=== PATIENT | male | born 1940 | race Hispanic/Latino ===

== ENCOUNTER → 2020-10-22 | Outpatient (CLI) | payer OTHER | END | disposition home or self-care (01) | LOC: OIH 10:18 | PROVIDERS: ATTEND Internal Medicine Cardiovascular Disease | DX: Z13.6 Encounter for screening for cardiovascular disorders (principal) | CPT/HCPCS: 75571 ==

== ENCOUNTER 2022-09-09 17:17 | Emergency (ER) | payer OTHER ==
[~2022-09-09] VITALS: Ht 175.3 cm; Wt 89.8 kg
[2022-09-09 19:24] LABS: BASOPHILS % (AUTO) 0.4 % (0.0-5.0); EOSINOPHILS % (AUTO) 3.9 % (0.0-8.0); HEMATOCRIT 39.3 % (42-54); LYMPHOCYTES % (AUTO) 22.1 % (21.0-51.0); MEAN CORPUSCULAR HEMOGLOBIN 29.9 pg (27.0-33.0); MEAN CORPUSCULAR HGB CONC 32.8 g/dL (32.0-36.0); MEAN CORPUSCULAR VOLUME 91.2 fL (79-99); MONOCYTES % (AUTO) 6.7 % (3.0-13.0); NEUTROPHILS % (AUTO) 66.5 % (40.0-77.0); PLATELET COUNT (AUTO) 185 K/uL (130-400); RED BLOOD CELL COUNT(AUTO) 4.31 MIL/uL (4.50-6.20); RED CELL DISTRIBUTION WIDTH 13.2 % (11.0-15.5); WHITE BLOOD COUNT (AUTO) 7.5 K/uL (4.8-10.8)
[2022-09-09 19:46] LABS: ALBUMIN 3.4 g/dL (3.5-5.0); TOTAL PROTEIN, SERUM 7.2 g/dL (6.0-8.3)
[2022-09-09] MEDS ORDERED: 0.9%NACL 1000ML 1,000 ML IV ONE (20:30)
[2022-09-09 20:36] LABS: ABG BASE EXCESS 0.2 mmol/L (-2.0-3.0); ABG HCO3 24.6 mmol/L (21.0-28.0); ABG OXYGEN SATURATION 94.7 % (95.0-99.0); ABG PCO2 39 mmHg (35-48)
[2022-09-09] MEDS ORDERED: INSULIN HUMULIN R 100 UNIT/ML 3ML IV ONE (21:00)
[2022-09-09 21:15] LABS: APPEARANCE,URINE CLEAR (CLEAR); BILIRUBIN,URINE NEGATIVE (NEGATIVE); COLOR,URINE LIGHT-YELLOW (YELLOW); GLUCOSE, URINE (UA) >=1000 mg/dL (NEGATIVE); KETONES,URINE NEGATIVE (NEGATIVE); LEUKOCYTE ESTERASE ,URINE NEGATIVE Leu/uL (NEGATIVE); NITRATE,URINE NEGATIVE (NEGATIVE); OCCULT BLOOD,URINE NEGATIVE (NEGATIVE); PH,URINE 5.5 (5.0-8.0); PROTEIN,URINE NEGATIVE (NEGATIVE); UROBILINOGEN,URINE 0.2 mg/dL (0.2-1.0)
[2022-09-09 21:18] LABS: WBC,URINE 0-1 /HPF (0-1); YEAST,URINE BUDDING FEW /HPF (None Seen)
[2022-09-10] MEDS ORDERED: 0.9%NACL 1000ML 1,000 ML IV ONE
[2022-09-10] MEDS ORDERED: CLIN-141 PO (01:49)
[2022-09-10 01:57] VITALS: BP 126/53
== END 2022-09-10 02:03 | disposition home or self-care (01) ==
LOC: EDH 17:17
DX: E11.65 Type 2 diabetes mellitus with hyperglycemia (principal); R60.9 Edema, unspecified; Z88.0 Allergy status to penicillin; Z98.890 Other specified postprocedural states
CPT/HCPCS: 99285; 96361; 96374; 70486; 80053; 82803; 85025; 82948 ×2; 82010; 81001; 36415 ×2; 93005; 36600; 83605 ×3; J1815; J7030 ×2

== ENCOUNTER 2023-10-30 22:50 | Emergency (ER) | payer OTHER ==
[~2023-10-30] VITALS: Ht 175.3 cm; Wt 89.8 kg
[~2023-10-30 22:50] MED LIST: ATOR-2 PO; CARB200T6 PO; DONE10TA43 PO; FAMO40TA7 PO; GABA300C PO; GLIM2TAB30 PO; LEVO-70 PO; OXYB5TAB20 PO
[2023-10-30 23:13] LABS: BASOPHILS # (AUTO) 0.02 K/uL (0.00-0.20); BASOPHILS % (AUTO) 0.2 % (0.0-5.0); EOSINOPHILS # (AUTO) 0.12 K/uL (0.00-0.70); EOSINOPHILS % (AUTO) 1.2 % (0.0-8.0); HEMATOCRIT 41.1 % (42-54); IMMATURE GRANULOCYTE ABSOLUTE 0.04 K/uL (0-1); LYMPHOCYTES # (AUTO) 1.4 K/uL (1.0-4.8); LYMPHOCYTES % (AUTO) 14.6 % (21.0-51.0); MEAN CORPUSCULAR HGB CONC 34.8 g/dL (32.0-36.0); MONOCYTES # (AUTO) 0.7 K/uL (0.1-1.0); MONOCYTES % (AUTO) 6.8 % (3.0-13.0); NEUTROPHILS # (AUTO) 7.6 K/uL (1.8-7.7); NEUTROPHILS % (AUTO) 76.8 % (40.0-77.0); PLATELET COUNT (AUTO) 222 K/uL (130-400); RED BLOOD CELL COUNT(AUTO) 4.62 MIL/uL (4.50-6.20); WHITE BLOOD COUNT (AUTO) 9.9 K/uL (4.8-10.8)
[2023-10-30 23:24] LABS: CREATININE 0.9 mg/dL (0.5-1.3); POTASSIUM 3.6 mmol/L (3.5-5.1)
[2023-10-30 23:27] LABS: SARS-CoV-2, RNA, NAAT NEGATIVE SARS CoV-2 (NEGATIVE)
[2023-10-30 23:27] LABS: INR <= 0.93 (0.85-1.15)
[2023-10-30 23:28] LABS: PARTIAL THROMBOPLASTIN TIME 26.7 SEC (26.3-35.5)
[2023-10-30 23:29] LABS: INFLUENZA TYPE A NEGATIVE FOR TYPE A (NEG); INFLUENZA TYPE B NEGATIVE FOR TYPE B (NEG)
[2023-10-30] MEDS: 0.9%NACL 1000ML 1,000 ML IV ONE (23:29)
[2023-10-30 23:32] LABS: ALBUMIN 3.1 g/dL (3.5-5.0); BILIRUBIN,TOTAL 0.3 mg/dL (0.2-1.0)
[2023-10-31 02:02] LABS: APPEARANCE,URINE CLEAR (CLEAR); BILIRUBIN,URINE NEGATIVE (NEGATIVE); COLOR,URINE YELLOW (YELLOW); GLUCOSE, URINE (UA) NEGATIVE (NEGATIVE); KETONES,URINE NEGATIVE (NEGATIVE); LEUKOCYTE ESTERASE ,URINE NEGATIVE Leu/uL (NEGATIVE); NITRATE,URINE NEGATIVE (NEGATIVE); OCCULT BLOOD,URINE NEGATIVE (NEGATIVE); PROTEIN,URINE 30 mg/dL (NEGATIVE)
[2023-10-31 02:09] LABS: ADD UA MICROSCOPIC YES
[2023-10-31 02:10] LABS: MUCUS,URINE RARE LPF (None Seen); RBC,URINE 0-1 /HPF (0-1); SQUAMOUS EPITHELIAL CELL,UR RARE /HPF (0-2)
[2023-10-31 09:02] VITALS: BP 132/78; PULSE 70; RESP 16; O2SAT 99
== END 2023-10-31 06:50 | disposition home or self-care (01) ==
LOC: EDH 22:50
DX: G93.32 Myalgic encephalomyelitis/chronic fatigue syndrome (principal); I10 Essential (primary) hypertension; E11.9 Type 2 diabetes mellitus without complications; E78.00 Pure hypercholesterolemia, unspecified; D69.6 Thrombocytopenia, unspecified; Z20.822 Contact with and (suspected) exposure to COVID-19; Z79.84 Long term (current) use of oral hypoglycemic drugs; Z79.899 Other long term (current) drug therapy; Z98.890 Other specified postprocedural states; Z88.0 Allergy status to penicillin
CPT/HCPCS: 99285; 96360; 71045; 87635; 96361; 84484; 80053; 85025; 85610; 85730; 87804 ×2; 83605 ×2; 81001; 36415 ×2; 93005; 70450; J7030

== ENCOUNTER 2023-12-07 21:59 | Observation (INO) | payer OTHER ==
[~2023-12-07] VITALS: Ht 170.2 cm; Wt 89.3 kg
[2023-12-07 23:06] LABS: APPEARANCE,URINE CLEAR (CLEAR); BILIRUBIN,URINE NEGATIVE (NEGATIVE); COLOR,URINE LIGHT-YELLOW (YELLOW); GLUCOSE, URINE (UA) NEGATIVE (NEGATIVE); KETONES,URINE NEGATIVE (NEGATIVE); LEUKOCYTE ESTERASE ,URINE NEGATIVE Leu/uL (NEGATIVE); NITRATE,URINE NEGATIVE (NEGATIVE); OCCULT BLOOD,URINE NEGATIVE (NEGATIVE); PROTEIN,URINE NEGATIVE (NEGATIVE); UROBILINOGEN,URINE 0.2 mg/dL (0.2-1.0)
[2023-12-07 23:08] LABS: ADD UA MICROSCOPIC NO
[2023-12-07 23:11] LABS: BASOPHILS # (AUTO) 0.02 K/uL (0.00-0.20); BASOPHILS % (AUTO) 0.3 % (0.0-5.0); EOSINOPHILS # (AUTO) 0.27 K/uL (0.00-0.70); EOSINOPHILS % (AUTO) 4.4 % (0.0-8.0); HEMATOCRIT 40.1 % (42-54); IMMATURE GRANULOCYTE ABSOLUTE 0.02 K/uL (0-1); LYMPHOCYTES # (AUTO) 1.7 K/uL (1.0-4.8); LYMPHOCYTES % (AUTO) 27.5 % (21.0-51.0); MEAN CORPUSCULAR HEMOGLOBIN 30.8 pg (27.0-33.0); MEAN CORPUSCULAR HGB CONC 34.4 g/dL (32.0-36.0); MEAN CORPUSCULAR VOLUME 89.5 fL (79-99); MONOCYTES # (AUTO) 0.4 K/uL (0.1-1.0); NEUTROPHILS # (AUTO) 3.7 K/uL (1.8-7.7); NEUTROPHILS % (AUTO) 60.5 % (40.0-77.0); PLATELET COUNT (AUTO) 160 K/uL (130-400); RED BLOOD CELL COUNT(AUTO) 4.48 MIL/uL (4.50-6.20); RED CELL DISTRIBUTION WIDTH 13.8 % (11.0-15.5); WHITE BLOOD COUNT (AUTO) 6.1 K/uL (4.8-10.8)
[2023-12-07 23:26] LABS: CREATININE 0.8 mg/dL (0.5-1.3); POTASSIUM 3.7 mmol/L (3.5-5.1)
[2023-12-07 23:31] LABS: ALBUMIN 3.1 g/dL (3.5-5.0); BILIRUBIN,TOTAL 0.3 mg/dL (0.2-1.0); TOTAL PROTEIN, SERUM 6.7 g/dL (6.0-8.3)
[2023-12-08] MEDS: 0.9%NACL 1000ML 1,000 ML IV ONE (00:14)
[2023-12-08] MEDS ORDERED: CEFAZOLIN SODIUM 2 GM VIAL IVPB SCH (01:30)
[2023-12-08] MEDS ORDERED: KCL 20 MEQ ERTAB PO PRN (03:00)
[2023-12-08] MEDS ORDERED: POTASSIUM CHLORIDE 20MEQ/100ML 100 ML IV PRN (03:00)
[2023-12-08] MEDS ORDERED: DEXTROSE 50%-WATER 50 ML DISP.SYRIN IV PRN (03:00)
[2023-12-08] MEDS ORDERED: ONDANSETRON 4MG INJ IV PRN (03:00)
[2023-12-08] MEDS ORDERED: MAGNESIUM 2GM PREMIX 50ML 50 ML IV PRN (03:00)
[2023-12-08] MEDS ORDERED: POTASSIUM CHLORIDE 10% ELIXIR 20 MEQ/15 ML UDCUP PO PRN (03:00)
[2023-12-08] MEDS ORDERED: HYDRALAZINE 20MG/ML VIAL IV PRN (03:00)
[2023-12-08] MEDS ORDERED: GLUCAGON 1MG KIT 1 MG ML IM PRN (03:00)
[2023-12-08] MEDS: 0.9%NACL 1000ML 1,000 ML IV SCH (03:54)
[2023-12-08] MEDS: CEFAZOLIN SODIUM IVPB SCH (03:54)
[2023-12-08] MEDS: [UNRECOGNIZED DRUG - OTHER] IVPB SCH (03:54)
[2023-12-08] MEDS: CEFAZOLIN SODIUM 1 GM VIAL ONE (03:56)
[2023-12-08 07:25] LABS: BASOPHILS # (AUTO) 0.02 K/uL (0.00-0.20); BASOPHILS % (AUTO) 0.3 % (0.0-5.0); EOSINOPHILS # (AUTO) 0.33 K/uL (0.00-0.70); EOSINOPHILS % (AUTO) 5.4 % (0.0-8.0); HEMATOCRIT 39.6 % (42-54); IMMATURE GRANULOCYTE ABSOLUTE 0.02 K/uL (0-1); LYMPHOCYTES # (AUTO) 1.8 K/uL (1.0-4.8); LYMPHOCYTES % (AUTO) 29.6 % (21.0-51.0); MEAN CORPUSCULAR HEMOGLOBIN 30.2 pg (27.0-33.0); MEAN CORPUSCULAR HGB CONC 34.6 g/dL (32.0-36.0); MEAN CORPUSCULAR VOLUME 87.2 fL (79-99); MONOCYTES # (AUTO) 0.5 K/uL (0.1-1.0); NEUTROPHILS # (AUTO) 3.5 K/uL (1.8-7.7); NEUTROPHILS % (AUTO) 56.4 % (40.0-77.0); PLATELET COUNT (AUTO) 160 K/uL (130-400); RED BLOOD CELL COUNT(AUTO) 4.54 MIL/uL (4.50-6.20); RED CELL DISTRIBUTION WIDTH 13.7 % (11.0-15.5); WHITE BLOOD COUNT (AUTO) 6.1 K/uL (4.8-10.8)
[2023-12-08] MEDS: INSULIN HUMULIN R 100 UNIT/ML 3ML SQ SCH (07:30)
[2023-12-08 07:34] LABS: HEMOGLOBIN A1C 6.8 % (4.0-6.0)
[2023-12-08 07:36] LABS: AMPHET/METH SCREEN,URINE NEGATIVE (NEGATIVE); BARBITURATE SCREEN, URINE NEGATIVE (NEGATIVE); BENZODIAZEPINES SCREEN,URINE NEGATIVE (NEGATIVE); CANNABINOID SCREEN,URINE NEGATIVE (NEGATIVE); COCAINE SCREEN,URINE NEGATIVE (NEGATIVE); OPIATE SCREEN,URINE NEGATIVE (NEGATIVE); PHENCYCLIDINE SCREEN,URINE NEGATIVE (NEGATIVE)
[2023-12-08 07:53] LABS: ALBUMIN 3.1 g/dL (3.5-5.0); BILIRUBIN,TOTAL 0.3 mg/dL (0.2-1.0); CREATININE 0.7 mg/dL (0.5-1.3); MAGNESIUM 1.9 mg/dL (1.80-2.40); POTASSIUM 3.6 mmol/L (3.5-5.1); THYROID STIMULATING HORMONE 1.05 uIU/mL (0.36-3.74); TOTAL PROTEIN, SERUM 6.7 g/dL (6.0-8.3)
[2023-12-08] MEDS: FAMOTIDINE 20MG VIAL IV SCH (08:56)
[2023-12-08] MEDS: HEPARIN 5,000 UNIT VIAL SQ SCH (08:56)
[2023-12-08] MEDS: HALOPERIDOL INJ 5 MG/ML VIAL ONE (16:23)
[2023-12-08] MEDS: HALOPERIDOL INJ 5 MG/ML VIAL IM SCH (16:26)
[2023-12-08 16:30] VITALS: O2SAT 98
[2023-12-08 17:33] VITALS: BP 125/77; PULSE 81; RESP 18
[2023-12-08 19:25] VITALS: BP 120/62; PULSE 73; RESP 20
[2023-12-08 20:00] VITALS: O2SAT 95
[2023-12-08] MEDS ORDERED: OXYB-66 PO (20:15)
[2023-12-08] MEDS ORDERED: ERGO500093 PO (20:15)
[2023-12-08 22:55] VITALS: BP 118/60; PULSE 70; RESP 18
[2023-12-09] VITALS (8 sets, daily range): BP systolic 108–157; BP diastolic 50–108; PULSE 50–80; RESP 18–22; O2SAT 98–100
[2023-12-09 04:00] LABS: BASOPHILS # (AUTO) 0.03 K/uL (0.00-0.20); BASOPHILS % (AUTO) 0.5 % (0.0-5.0); EOSINOPHILS # (AUTO) 0.31 K/uL (0.00-0.70); EOSINOPHILS % (AUTO) 5.3 % (0.0-8.0); HEMATOCRIT 39.6 % (42-54); IMMATURE GRANULOCYTE ABSOLUTE 0.01 K/uL (0-1); LYMPHOCYTES # (AUTO) 1.9 K/uL (1.0-4.8); LYMPHOCYTES % (AUTO) 31.8 % (21.0-51.0); MEAN CORPUSCULAR HEMOGLOBIN 30.7 pg (27.0-33.0); MEAN CORPUSCULAR HGB CONC 34.3 g/dL (32.0-36.0); MEAN CORPUSCULAR VOLUME 89.4 fL (79-99); MONOCYTES # (AUTO) 0.4 K/uL (0.1-1.0); MONOCYTES % (AUTO) 7.4 % (3.0-13.0); NEUTROPHILS # (AUTO) 3.2 K/uL (1.8-7.7); NEUTROPHILS % (AUTO) 54.8 % (40.0-77.0); PLATELET COUNT (AUTO) 173 K/uL (130-400); RED BLOOD CELL COUNT(AUTO) 4.43 MIL/uL (4.50-6.20); RED CELL DISTRIBUTION WIDTH 13.9 % (11.0-15.5); WHITE BLOOD COUNT (AUTO) 5.8 K/uL (4.8-10.8)
[2023-12-09 04:18] LABS: BILIRUBIN,TOTAL 0.4 mg/dL (0.2-1.0); CREATININE 0.7 mg/dL (0.5-1.3); POTASSIUM 3.6 mmol/L (3.5-5.1); TOTAL PROTEIN, SERUM 6.5 g/dL (6.0-8.3)
[2023-12-09] MEDS: CEFAZOLIN SODIUM 1 GM VIAL IVPB SCH (04:56)
[2023-12-09] MEDS: HALOPERIDOL INJ 5 MG/ML VIAL IV PRN (19:55)
[2023-12-09] MEDS: GABAPENTIN 300 MG CAPSULE PO SCH (19:55)
[2023-12-10 03:11] VITALS: BP 129/72; PULSE 76; RESP 16
[2023-12-10 04:55] LABS: BASOPHILS # (AUTO) 0.03 K/uL (0.00-0.20); BASOPHILS % (AUTO) 0.5 % (0.0-5.0); EOSINOPHILS # (AUTO) 0.24 K/uL (0.00-0.70); EOSINOPHILS % (AUTO) 4.3 % (0.0-8.0); HEMATOCRIT 39.9 % (42-54); IMMATURE GRANULOCYTE ABSOLUTE 0.01 K/uL (0-1); LYMPHOCYTES % (AUTO) 35.5 % (21.0-51.0); MEAN CORPUSCULAR HEMOGLOBIN 30.5 pg (27.0-33.0); MEAN CORPUSCULAR HGB CONC 34.3 g/dL (32.0-36.0); MEAN CORPUSCULAR VOLUME 88.9 fL (79-99); MONOCYTES # (AUTO) 0.5 K/uL (0.1-1.0); MONOCYTES % (AUTO) 8.9 % (3.0-13.0); NEUTROPHILS # (AUTO) 2.8 K/uL (1.8-7.7); NEUTROPHILS % (AUTO) 50.6 % (40.0-77.0); PLATELET COUNT (AUTO) 182 K/uL (130-400); RED BLOOD CELL COUNT(AUTO) 4.49 MIL/uL (4.50-6.20); WHITE BLOOD COUNT (AUTO) 5.5 K/uL (4.8-10.8)
[2023-12-10 05:23] LABS: ALBUMIN 3.1 g/dL (3.5-5.0); BILIRUBIN,TOTAL 0.6 mg/dL (0.2-1.0); CREATININE 0.8 mg/dL (0.5-1.3); POTASSIUM 3.2 mmol/L (3.5-5.1); TOTAL PROTEIN, SERUM 6.7 g/dL (6.0-8.3)
[2023-12-10] MEDS: POTASSIUM CHLORIDE 20MEQ/100ML 100 ML IV PRN (06:21)
[2023-12-10 07:30] VITALS: BP 145/76; PULSE 52; RESP 19
[2023-12-10 08:00] VITALS: O2SAT 93
== END 2023-12-10 10:25 | disposition left against medical advice (07) ==
LOC: EDH 21:59 → EDHIP 12-08 02:31 → 4DH 12-08 15:14
PROVIDERS: ADMIT Hospitalist; ATTEND Hospitalist
DX: R41.82 Altered mental status, unspecified (principal); F03.90 Unspecified dementia, unspecified severity, without behavioral disturbance, psychotic disturbance, mood disturbance, and anxiety; I10 Essential (primary) hypertension; E11.65 Type 2 diabetes mellitus with hyperglycemia; E78.5 Hyperlipidemia, unspecified; E11.40 Type 2 diabetes mellitus with diabetic neuropathy, unspecified; L03.115 Cellulitis of right lower limb; D64.9 Anemia, unspecified; E46 Unspecified protein-calorie malnutrition; R60.0 Localized edema; E78.00 Pure hypercholesterolemia, unspecified; I87.8 Other specified disorders of veins; Z74.01 Bed confinement status; Z88.0 Allergy status to penicillin; Z53.29 Procedure and treatment not carried out because of patient's decision for other reasons; Z79.899 Other long term (current) drug therapy
CPT/HCPCS: 80053 ×4; 82140 ×2; 85025 ×4; 83605; 81003; 36415 ×4; 70450; 93005; 96376 ×3; 96372 ×3; 96361 ×3; 96375 ×2; 83036; 80156; 84443; 83735 ×2; 80061; 80305; 87040 ×2; 82948 ×5; 71045; 93971; 99291; 92610; 84145; 96365; 96366 ×2; 74230; 92611; G0378 ×54; J3490 ×5; J0690 ×3; J7030 ×2; J1630 ×3; J1644 ×4; J3480; 96374

== ENCOUNTER 2024-01-30 00:09 | Emergency (ER) | payer OTHER ==
[~2024-01-30] VITALS: Ht 175.3 cm; Wt 77.1 kg
[~2024-01-30 00:09] MED LIST changes: +ERGO500093 PO; +OXYB-66 PO
[2024-01-30 00:44] LABS: BASOPHILS # (AUTO) 0.03 K/uL (0.00-0.20); BASOPHILS % (AUTO) 0.3 % (0.0-5.0); EOSINOPHILS # (AUTO) 0.31 K/uL (0.00-0.70); EOSINOPHILS % (AUTO) 2.8 % (0.0-8.0); HEMATOCRIT 40.8 % (42-54); IMMATURE GRANULOCYTE ABSOLUTE 0.06 K/uL (0-1); MEAN CORPUSCULAR HGB CONC 35.3 g/dL (32.0-36.0); MEAN CORPUSCULAR VOLUME 87.7 fL (79-99); MONOCYTES # (AUTO) 0.6 K/uL (0.1-1.0); MONOCYTES % (AUTO) 5.2 % (3.0-13.0); NEUTROPHILS # (AUTO) 8.2 K/uL (1.8-7.7); NEUTROPHILS % (AUTO) 73.2 % (40.0-77.0); PLATELET COUNT (AUTO) 163 K/uL (130-400); RED BLOOD CELL COUNT(AUTO) 4.65 MIL/uL (4.50-6.20); RED CELL DISTRIBUTION WIDTH 13.2 % (11.0-15.5); WHITE BLOOD COUNT (AUTO) 11.2 K/uL (4.8-10.8)
[2024-01-30 00:53] LABS: POTASSIUM 3.4 mmol/L (3.5-5.1)
[2024-01-30 00:58] LABS: ALBUMIN 3.5 g/dL (3.5-5.0); BILIRUBIN,TOTAL 0.4 mg/dL (0.2-1.0); TOTAL PROTEIN, SERUM 7.4 g/dL (6.0-8.3)
[2024-01-30] MEDS: LEVETIRACETAM 500 MG/5 ML SD VIAL IV SCH (01:13)
[2024-01-30] MEDS: NICARDIPINE 25MG INJ 25 MG in 0.9% NACL 250ML 240 ML IV SCH (01:14)
[2024-01-30] MEDS: NICARDIPINE 25MG INJ IV ONE (01:15)
[2024-01-30 02:19] VITALS: BP 124/68; PULSE 88; RESP 19; O2SAT 97
== END 2024-01-30 02:49 | disposition short-term general hospital (02) ==
LOC: EDH 00:09
DX: S06.6X9A Traumatic subarachnoid hemorrhage with loss of consciousness of unspecified duration, initial encounter (principal); S06.5X9A Traumatic subdural hemorrhage with loss of consciousness of unspecified duration, initial encounter; E11.9 Type 2 diabetes mellitus without complications; E78.5 Hyperlipidemia, unspecified; K21.9 Gastro-esophageal reflux disease without esophagitis; F03.90 Unspecified dementia, unspecified severity, without behavioral disturbance, psychotic disturbance, mood disturbance, and anxiety; Z79.899 Other long term (current) drug therapy; Z88.0 Allergy status to penicillin; Z98.890 Other specified postprocedural states; W18.39XA Other fall on same level, initial encounter; Y93.89 Activity, other specified; Y92.89 Other specified places as the place of occurrence of the external cause; Y99.8 Other external cause status
CPT/HCPCS: 99285; 70450; 96374; 96375; 80053; 85025; 36415; 72125; 74176; 93005; J1953; J3490